=== PATIENT | female | born 1985 | race African-American/Black ===

== ENCOUNTER 2018-11-23 23:21 | Emergency (ER) | payer BC ==
[~2018-11-23] VITALS: Ht 152.4 cm; Wt 117.9 kg
[2018-11-23 23:28] VITALS: BP 123/86
--- NOTE | 2018-11-23 23:35 | Emergency Room Report ---
History of Present Illness General Chief Complaint: Upper Extremity Injury Source: Patient Present Illness HPI Patient resents with complaints of right elbow pain reports that Approximately 12:30 in the afternoon she was with her child while she was walking she tripped and fell onto her right arm Denies any shoulder pain denies any head injury pain is localized around the elbow and somewhat going into the forearm Pain is worse with movement denies any abdominal pain or other lower extremity trauma Allergies: Coded Allergies: No Known Allergies (Unverified , 11/23/18) Patient History Past Medical History: see triage record Pertinent Family History: none Last Menstrual Period: 09/2018 Now: No Reviewed Nursing Documentation: PMH: Agreed; PSxH: Agreed Nursing Documentation-PMH Past Medical History: No Stated History Review of Systems All Other Systems: negative except mentioned in HPI Physical Exam Vital Signs Date Time Temp Pulse Resp B/P (MAP) Pulse Ox O2 Delivery O2 Flow Rate FiO2 11/23/18 23:23 97.3 95 18 123/86 (98) 97 Room Air Sp02 EP Interpretation: reviewed, normal General Appearance: well appearing, no apparent distress Head: normocephalic, atraumatic Eyes: bilateral eye PERRL, bilateral eye EOMI ENT: hearing grossly normal, normal pharynx Neck: supple Respiratory: lungs clear Cardiovascular #1: regular rate, rhythm Gastrointestinal: normal bowel sounds, non tender Musculoskeletal: other - Tender on palpation lateral right elbow into the mid forearm distal wrist and proximal shoulder are not tender on palpation Neurologic: alert, oriented x3 Skin: no rash Lymphatic: normal inspection Procedures Splinting Splinting : Consent: Verbal Location: right Elbow Pre-Made Type: Hand-Made Type: plaster Splint: poserior short Pre-Proc Neuro Vasc Exam: normal Post-Proc Neuro Vasc Exam: normal Patient Tolerated: Well Complications: None Medical Decision Making Diagnostic Impression: Primary Impression: Elbow fracture, right ER Course Multiple differentials including but not limited to fracture, contusion, sprain entertained Patient's x-ray imaging does reveal a questionable posterior fat pad This is being treated as possible fracture patient has splint applied orthopedic referral is made Patient remains neurovascularly intact for close outpatient follow-up Other X-Ray Diagnostic Results Other X-Ray Diagnostic Results : X-Ray ordered: Elbow # of Views/Limited Vs Complete: 3 View Indication: Pain EP Interpretation: Yes Interpretation: no dislocation, no soft tissue swelling, other - No obvious fracture however positive posterior fat pad sign Impression: Other - Posterior effusion. Concern for fracture Electronically Signed by: Vish Cornejo DO Last Vital Signs Date Time Temp Pulse Resp B/P (MAP) Pulse Ox O2 Delivery O2 Flow Rate FiO2 11/23/18 23:23 97.3 95 18 123/86 (98) 97 Room Air Status: improved Disposition: HOME, SELF-CARE Condition: Improved Scripts Ibuprofen* (MOTRIN*) 600 Mg Tablet 600 MG ORAL Q8H PRN for For Pain, #20 TAB 0 Refills Prov: Vish Cornejo DO 11/24/18 Additional Instructions: Patient is provided with the discharge instructions notified to follow up with primary doctor in the next 2-3 days otherwise return to the er with any worsening symptoms. Please note that this report is being documented using [employer] technology. This can lead to erroneous entry secondary to incorrect interpretation by the dictating instrument. Vish Corenjo DO Nov 23, 2018 23:35
--- NOTE | 2018-11-23 23:38 | NUR ---
ED Nurse Note: Patient walked in to ER due to right arm pain. Patient stated she slipped and fell around 1200 and landed on her right hand and now cannot extend elbow. Able to move digits with minimal pain. Alert and oriented, verbally responsive. Breathing even and unlabored. No SOB. Afebrile. VSS.
--- NOTE | 2018-11-23 23:52 | NUR ---
ED Nurse Note: Xray done at bedside.
[2018-11-24] MEDS ORDERED: IBUPROFEN600 MG ORAL (00:04)
[2018-11-24 00:07] VITALS: BP 123/86
--- NOTE | 2018-11-24 00:07 | NUR ---
ED Nurse Note: Pt cleared by ERMD for discharge. DC instructions/prescription was given and explained to pt and verbalized understanding of teachings. All medical deviecs such as ID band removed. Pt is AAO x4, ambulatory and left with all personal belongings. Accompanied by S/O.
--- NOTE | 2018-11-24 00:18 | Diagnostic Imaging Report ---
EXAM: XR Right Elbow Complete, 3 or More Views CLINICAL HISTORY: TRAUMA TECHNIQUE: Frontal, lateral and oblique views of the right elbow. COMPARISON: No relevant prior studies available. FINDINGS: Bones joints: No acute fracture. No dislocation. Soft tissues: Elevation of the anterior and posterior fat pads. IMPRESSION: No definite fracture is identified, but given elevation of the anterior and posterior fat pads (joint effusion) likely underlying occult fracture is present.
== END 2018-11-24 00:07 | disposition home or self-care (01) ==
LOC: EMR 23:39
DX: S42.401A Unspecified fracture of lower end of right humerus, initial encounter for closed fracture (principal); W01.0XXA Fall on same level from slipping, tripping and stumbling without subsequent striking against object, initial encounter; Y93.01 Activity, walking, marching and hiking; Y92.9 Unspecified place or not applicable
CPT/HCPCS: 29125; 99283